=== PATIENT | female | born 1980 | race Asian ===

== ENCOUNTER 2016-08-12 09:34 | Emergency (ER) | payer BC, OTHER ==
[2016-08-12 09:40] VITALS: TEMP 97.7
[2016-08-12 10:13] VITALS: PULSE 65
[2016-08-12 10:14] LABS: COLOR PALE YELLOW; LEUKOCYTE ESTERASE,URINE NEGATIVE (NEGATIVE); NITRITE,URINE NEGATIVE (NEGATIVE)
--- NOTE | 2016-08-12 10:33 | EDPHY ---
H & P Time Seen by Provider: 08/12/16 10:04 HPI/ROS: Chief complaint. Pelvic pain HPI. 36-year-old female has had 4-5 months of low back stiffness that she feels has been muscular. The last 2 days however she has had some increasing pain to the low back. She has had some burning with urination. Fullness and warmth to the low abdomen on both sides. Symptoms are worse with yoga crunch. No chest discomfort or trouble breathing. No vomiting diarrhea or fever. She does not think she has vaginal discharge ROS Constitutional. no fever/chills, no weakness Eyes. no problems with vision ENT. no sore throat, no nasal drainage Cardiovascular. no chest pain Respiratory. no shortness of breath, no cough Abdominal. Low abdominal pain . no problems urinating MS. Low back pain Skin. no rash Lymph. no swollen glands Neuro. no headache, no dizziness, no difficulty walking or with speech Past Medical/Surgical History: Past medical history significant for lactose intolerant and post concussive syndrome Social History: Single, nonsmoker, no alcohol Smoking Status: Never smoked Physical Exam: General Appearance: Alert pleasant well-developed female mild distress vital signs are stable Eyes: Pupils equal and round no pallor or injection. ENT, Mouth: Mucous membranes are moist. Respiratory: There are no retractions, lungs are clear to auscultation. Cardiovascular: Regular rate and rhythm. Gastrointestinal: Abdomen is soft with mild bilateral adnexal tenderness. No masses. Neurological: Awake and alert, sensory and motor exams grossly normal. Skin: Warm and dry, no rashes. Musculoskeletal: Neck is supple nontender. Mild tenderness over the sacrum Extremities symmetrical, full range of motion. Psychiatric: Patient is oriented X 3, there is no agitation. Constitutional: Initial Vital Signs Temperature (C) 36.5 C 08/12/16 09:35 Heart Rate 65 08/12/16 09:35 Respiratory Rate 16 08/12/16 09:35 Blood Pressure 105/66 08/12/16 09:35 O2 Sat (%) 96 08/12/16 09:35 O2 Delivery Mode Room Air Allergies/Adverse Reactions: No Known Allergies Allergy (Verified 08/12/16 09:35) Home Medications: Medication Instructions Recorded NK [No Known Home Meds] 08/12/16 Medical Decision Making - Diagnostics Imaging: Pelvic ultrasound reviewed and discussed with Dr. Morelos shows possible involuted cyst on the right ovary but otherwise is normal Procedures: IV normal saline ED Course/Re-evaluation: Re-evaluation at 11:55 a.m.. Patient is stable. She and I discussed imaging and laboratory results. We discussed treatment plan including criteria for return and importance of follow-up and further evaluation. 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 Differential Diagnosis: I considered urinary tract infection, muscular low back pain, ovarian cyst, ectopic - Data Points Laboratory Results: Laboratory Results 08/12/16 10:52 08/12/16 10:52 08/12/16 08/12/16 10:52 10:03 WBC 5.27 10^3/uL (3.80-9.50) RBC 4.44 10^6/uL (4.18-5.33) Hgb 14.5 g/dL (12.6-16.3) Hct 41.5 % (38.0-47.0) MCV 93.5 fL (81.5-99.8) MCH 32.7 pg (27.9-34.1) MCHC 34.9 g/dL (32.4-36.7) RDW 11.4 L % (11.5-15.2) Plt Count 266 10^3/uL (150-400) MPV 10.3 fL (8.7-11.7) Neut % (Auto) 58.3 % (39.3-74.2) Lymph % (Auto) 34.0 % (15.0-45.0) [place] % (Auto) 5.1 % (4.5-13.0) Eos % (Auto) 1.5 % (0.6-7.6) Baso % (Auto) 0.9 % (0.3-1.7) Nucleat RBC Rel Count 0.0 % (0.0-0.2) Absolute Neuts (auto) 3.07 10^3/uL (1.70-6.50) Absolute Lymphs (auto) 1.79 10^3/uL (1.00-3.00) Absolute Monos (auto) 0.27 L 10^3/uL (0.30-0.80) Absolute Eos (auto) 0.08 10^3/uL (0.03-0.40) Absolute Basos (auto) 0.05 10^3/uL (0.02-0.10) Absolute Nucleated RBC 0.00 10^3/uL (0-0.01) Immature Gran % 0.2 % (0.0-1.1) Immature Gran # 0.01 10^3/uL (0.00-0.10) Sodium 142 mEq/L (134-144) Potassium 4.6 mEq/L (3.5-5.2) Chloride 105 mEq/L (97-110) Carbon Dioxide 24 mEq/l (22-31) Anion Gap 13 mEq/L (8-16) BUN 19 mg/dL (7-23) Creatinine 0.7 mg/dL (0.6-1.0) Estimated GFR > 60 Glucose 93 mg/dL (70-100) Calcium 9.8 mg/dL (8.5-10.4) Beta HCG, Qual NEGATIVE Urine Color PALE YELLOW Urine Appearance CLEAR Urine pH 7.0 (5.0-7.5) Ur Specific [place] 1.004 (1.002-1.030) Urine Protein NEGATIVE (NEGATIVE) Urine Ketones NEGATIVE (NEGATIVE) Urine Blood NEGATIVE (NEGATIVE) Urine Nitrate NEGATIVE (NEGATIVE) Urine Bilirubin NEGATIVE (NEGATIVE) Urine Urobilinogen NEGATIVE EU (0.2-1.0) Ur Leukocyte Esterase NEGATIVE (NEGATIVE) Ur Culture Indicated? NOT INDICATED (NI) Urine Glucose NEGATIVE (NEGATIVE) Medications Given: Discontinued Medications Sodium Chloride (Ns) 1,000 mls @ 0 mls/hr IV ONCE ONE PRN Reason: Wide Open Stop: 08/12/16 10:31 Last Admin: 08/12/16 10:42 Dose: Not Given Departure - Departure Disposition: Home, Routine, Self-Care Clinical Impression: Pain in pelvis Cyst of ovary Qualifiers: Laterality: right Qualifier Code: (N83.201) Unspecified ovarian cyst, right side Condition: Good Instructions: Pelvic Pain in Women (ED) Additional Instructions: Ibuprofen 400 mg every 6 hours for discomfort. Activity as tolerated. Return for worsening symptoms. I will give you the name of 1 of our gynecologists. Call tomorrow to make a follow-up appointment for further evaluation Referrals: NONE *PRIMARY CARE P,. [Primary Care Provider] - As per Instructions Arati Huffman MD [Medical Doctor] - 2-3 days, call for appt.
[2016-08-12] MEDS: NS 1,000 ML IV ONE ×2 (10:39→10:42)
[2016-08-12 11:08] LABS: % IMMATURE GRANULYOCYTES 0.2 % (0.0-1.1); ABSOLUTE IMMATURE GRANULOCYTES 0.01 10^3/uL (0.00-0.10); ADD DIFF? NO; ADD MORPH? NO; ADD SCAN? NO; ATYPICAL LYMPHOCYTE FLAG 10 (0-99); FRAGMENT RBC FLAG 0 (0-99); HEMATOCRIT 41.5 % (38.0-47.0); HEMOGLOBIN 14.5 g/dL (12.6-16.3); LEFT SHIFT FLG 0 (0-99); LIPEMIA HEMOLYSIS FLAG 90 (0-99); MEAN CELL HEMOGLOBIN 32.7 pg (27.9-34.1); MEAN CELL HEMOGLOBIN CONCENTR. 34.9 g/dL (32.4-36.7); MEAN CELL VOLUME 93.5 fL (81.5-99.8); MEAN PLATELET VOLUME 10.3 fL (8.7-11.7); PLATELET CLUMPS FLAG 0 (0-99); PLATELET COUNT 266 10^3/uL (150-400); RED BLOOD CELL COUNT 4.44 10^6/uL (4.18-5.33); RED CELL DISTRIBUTION WIDTH 11.4 % (11.5-15.2)
[2016-08-12 11:39] LABS: ANION GAP 13 mEq/L (8-16); CALCIUM 9.8 mg/dL (8.5-10.4); CARBON DIOXIDE 24 mEq/l (22-31); CHLORIDE 105 mEq/L (97-110); CREATININE 0.7 mg/dL (0.6-1.0); GLOMERULAR FILTRATION RATE > 60; GLUCOSE 93 mg/dL (70-100); POTASSIUM 4.6 mEq/L (3.5-5.2); SODIUM 142 mEq/L (134-144)
--- NOTE | 2016-08-12 12:05 | US ---
Pelvic Ultrasound (Transabdominal and Endovaginal) with color flow and spectral Doppler History: Chronic pelvic pain with recent increase in symptoms.. Comparison: Prior MRI pelvis study from January 10, 2015. Findings: The pelvis was first examined through a mildly distended bladder from TRANSABDOMINAL approach. UTERUS: Size: 7.5 x 3.7 x 5.4 cm in longitudinal, AP, and transverse projections. Orientation: Anteflexed. Uterine Masses: None seen. Endometrium: Mildly thickened measuring about 12 mm. No focal abnormality.. ADNEXA: No adnexal masses. The pelvis was then evaluated from ENDOVAGINAL approach after the bladder was emptied to better evalu ate the uterus and adnexa. UTERUS: Orientation: Anteverted. Masses: None. Endometrium: Normal measuring 11 mm in thickness. No focal abnormality. Arcuate type configuration o f the uterine fundus. ADNEXA: Normal. Small follicles are present bilaterally. Involuted small follicular cyst suspected ri ght ovary. Right ovary size: 3.7 x 2.6 x 2.1 cm Left ovary size: 2.6 x 1.1 x 2.5 cm Color flow and spectral Doppler: Normal color flow imaging with normal Doppler waveform bilaterally. Free fluid: Mild physiologic free fluid is seen in the pelvis. Other findings:None. Impression: Relatively normal pelvic ultrasound for age. These findings were discussed by telephone with Dr. Lucas Shaw at 1202 hrs.
[2016-08-12 12:19] VITALS: BP 104/53; RESP 18; O2SAT 95
== END 2016-08-12 12:19 | disposition home or self-care (01) ==
DX: N83.201 Unspecified ovarian cyst, right side (principal)

== ENCOUNTER → 2017-05-02 | Outpatient (CLI) | payer BC | LOC: FIMAGING 17:47 | PROVIDERS: ATTEND Nurse Practitioner | DX: R19.09 Other intra-abdominal and pelvic swelling, mass and lump (principal) ==

== ENCOUNTER → 2017-08-07 | Outpatient (CLI) | payer BC | LOC: FIMAGING 18:02 | PROVIDERS: ATTEND Family Medicine | DX: R07.81 Pleurodynia (principal) ==

== ENCOUNTER 2017-09-12 18:33 | Emergency (ER) | payer BC ==
[2017-09-12 18:48] VITALS: TEMP 97.5
--- NOTE | 2017-09-12 19:55 | EDPHY ---
H & P Time Seen by Provider: 09/12/17 19:15 HPI/ROS: Chief complaint. Possible UTI HPI. 37-year-old female 6 weeks with painful urination beginning this afternoon. She has had some urinary frequency the last 1-2 weeks. She has had some low back pain last 1-2 weeks. She also noted she has had chills without fever for 2 weeks. She is 1 para 0. She has slight tenderness in the right adnexal area but has a known torn rectus abdominis muscle in this area. She has no vaginal bleeding or spotting. ROS Constitutional. no fever/chills, no weakness Eyes. no problems with vision ENT. no sore throat, no nasal drainage Cardiovascular. no chest pain Respiratory. no shortness of breath, no cough Abdominal. no abdominal pain, no nausea/vomiting, no diarrhea . Urinary frequency and painful urination MS. no calf pain/swelling, no neck/back pain, no joint pain Skin. no rash Lymph. no swollen glands Neuro. no headache, no dizziness, no difficulty walking or with speech Past Medical/Surgical History: Healthy Social History: , nonsmoker, no alcohol Smoking Status: Never smoked Physical Exam: General Appearance: Alert well-developed female mild distress vital signs are stable Eyes: Pupils equal and round no pallor or injection. ENT, Mouth: Mucous membranes are moist. Respiratory: There are no retractions, lungs are clear to auscultation. Cardiovascular: Regular rate and rhythm. Gastrointestinal: Abdomen is soft with very slight tenderness in the right adnexal area. This is where she has been having problems with a torn rectus abdominus muscle. Neurological: Awake and alert, sensory and motor exams grossly normal. Skin: Warm and dry, no rashes. Musculoskeletal: Neck is supple nontender. Extremities symmetrical, full range of motion. Psychiatric: Patient is oriented X 3, there is no agitation. Constitutional: Initial Vital Signs Temperature (C) 36.4 C 09/12/17 18:43 Heart Rate 62 09/12/17 18:43 Respiratory Rate 16 09/12/17 18:43 Blood Pressure 93/51 L 09/12/17 18:43 O2 Sat (%) 97 09/12/17 18:43 O2 Delivery Mode Room Air Allergies/Adverse Reactions: No Known Allergies Allergy (Verified 08/12/16 09:35) Home Medications: Medication Instructions Recorded NK [No Known Home Meds] 08/12/16 Medical Decision Making - Diagnostics Imaging Results: Imaging Impressions Pelvic/Renal Ultrasound 09/12/17 20:05 Impression: 1. There is a single viable intrauterine gestation noted in the right fundal uterine horn with an estimated age of 6 weeks 0 days, and an estimated date of delivery of 05/06/18. Consider follow-up reevaluation with the [facility] between 11 and 13 weeks gestation to assess the nuchal translucency, given the patient's advanced maternal age. 2. Nonspecific small focus of fluid in the left uterine horn. 3. Normal appearance of the ovaries, with no adnexal mass free fluid, or torsion. Findings were discussed with MARIXA SANDOVAL MD at 21:36, on 09/12/2017. Ultrasound shows the viable IUP. It is in the right fundal uterine horn. ED Course/Re-evaluation: Urine is fairly normal looking without obvious infection. It is sent for culture and sensitivity. Re-evaluation 7:55 p.m.. Patient and I discussed laboratory evaluation. As the patient has right adnexal tenderness and has not had an ultrasound in her it is possible that the patient has ectopic . She and I discussed this and recommendation for ultrasound. She expresses understanding and agreement Re-evaluation at 9:45 p.m.. Patient is stable. Patient, her , and I discussed lab and imaging study results. We discussed treatment plan including criteria for return importance of follow-up further evaluation. She expresses understanding and agreement Differential Diagnosis: I considered UTI, torn rectus abdominus muscle as etiology for discomfort, ectopic , ovarian cyst/torsion - Data Points Laboratory Results: 09/12/17 18:50 Urine Color PALE YELLOW Urine Appearance CLEAR Urine pH 6.0 (5.0-7.5) Ur Specific [place] 1.008 (1.002-1.030) Urine Protein NEGATIVE (NEGATIVE) Urine Ketones NEGATIVE (NEGATIVE) Urine Blood NEGATIVE (NEGATIVE) Urine Nitrate NEGATIVE (NEGATIVE) Urine Bilirubin NEGATIVE (NEGATIVE) Urine Urobilinogen NEGATIVE EU EU (0.2-1.0) Ur Leukocyte Esterase TRACE H (NEGATIVE) Urine RBC 1-3 /hpf /hpf (0-3) Urine WBC 1-3 /hpf /hpf (0-3) Ur Epithelial Cells TRACE /lpf /lpf (NONE-1+) Urine Bacteria 1+ /hpf H /hpf (NONE SEEN) Urine Mucus TRACE /lpf /lpf (NONE-1+) Urine Glucose NEGATIVE (NEGATIVE) Departure - Departure Disposition: Home, Routine, Self-Care Clinical Impression: Abdominal pain affecting Abdominal pain Qualifiers: Abdominal location: right lower quadrant Qualified Code(s): R10.31 - Right lower quadrant pain Condition: Good Instructions: Acute Abdominal Pain (ED) Additional Instructions: May use Tylenol for discomfort. Heat to low abdomen. We will call you if urine culture results are positive. Follow up with OBGYN for your . Recommendation for in-depth ultrasound between 11 and 13 weeks. Referrals: Jessica Aldana MD [Primary Care Provider] - As per Instructions Jose Guadalupe-Aarti Reinoso MD [Medical Doctor] - As per Instructions
[2017-09-12 20:19] VITALS: RESP 18
[2017-09-12 22:23] VITALS: BP 107/48; PULSE 63; O2SAT 97
== END 2017-09-12 22:20 | disposition home or self-care (01) ==
DX: O26.891 Other specified pregnancy related conditions, first trimester (principal); R10.31 Right lower quadrant pain; Z3A.01 Less than 8 weeks gestation of pregnancy

== ENCOUNTER → 2018-08-28 | Outpatient (CLI) | payer BC | LOC: FIMAGING 11:35 | PROVIDERS: ATTEND Obstetrics & Gynecology | DX: O09.521 Supervision of elderly multigravida, first trimester (principal); O26.20 Pregnancy care for patient with recurrent pregnancy loss, unspecified trimester; O35.1XX1 Maternal care for (suspected) chromosomal abnormality in fetus, fetus 1; Q51.810 Arcuate uterus; Z3A.13 13 weeks gestation of pregnancy ==

== ENCOUNTER 2018-09-12 21:44 | Emergency (ER) | payer BC ==
[2018-09-12] MEDS ORDERED: NS 1,000 ML IV ONE ×2 (22:36)
--- NOTE | 2018-09-12 22:40 | EDPHY ---
H & P Stated Complaint: ABD PAIN W/ N/V ALL DAY, 15 WEEK +OB Time Seen by Provider: 09/12/18 22:16 HPI/ROS: HPI This is a is (2 SABs) at 15 weeks estimated gestational age by ultrasound who presents with 1 day of nausea, vomiting, abdominal cramping. Symptoms began this morning at about 7:00 a.m.. She ate breakfast and then vomited it. She tried to eat lunch but also vomited this. Later in the day she was unable to tolerate a cup of water and called the advice nurse from her OB GYNs office and was instructed to come into the emergency department. She describes intermittent mild diffuse cramping abdominal pain associated with this. She has had 2 episodes of loose stool. She has not had urine output. She has had an uncomplicated thus far. She has not had a fever, dysuria, hematuria, vaginal bleeding, vaginal discharge. REVIEW OF SYSTEMS 10 systems were reviewed and negative with the exception of the elements mentioned in the history of present illness. PMHx: Healthy, OBGYN is Dr. Taylor Soc Hx: PHYSICAL General Appearance: Alert, no distress Eyes: Pupils equal and round no pallor or injection ENT, Mouth: Mucous membranes moist Respiratory: There are no retractions, lungs are clear to auscultation Cardiovascular: Regular rate and rhythm Gastrointestinal: Abdomen is soft and non-tender, gravid, bowel sounds normal Neurological: A&O, moves all extremities Skin: Warm and dry, no rashes Musculoskeletal: Neck is supple non tender Extremities: symmetrical, full range of motion Psychiatric: Patient is oriented X 3, there is no agitation Source: Patient Exam Limitations: No limitations - Personal History EDC: 03/05/19 Current Tetanus Diphtheria and Acellular Pertussis (TDAP): Unsure - Medical/Surgical History Hx Asthma: No Hx Chronic Respiratory Disease: No Hx Diabetes: No Hx Cardiac Disease: No Hx Renal Disease: No Hx Cirrhosis: No Hx Alcoholism: No Hx HIV/AIDS: No Hx Splenectomy or Spleen Trauma: No Other PMH: lactose intolerant - Social History Smoking Status: Never smoked Constitutional: Initial Vital Signs Temperature (C) 36.4 C 09/12/18 21:50 Heart Rate 81 09/12/18 21:50 Respiratory Rate 14 09/12/18 21:50 Blood Pressure 104/59 L 09/12/18 21:50 O2 Sat (%) 95 09/12/18 21:50 O2 Delivery Mode Room Air Allergies/Adverse Reactions: No Known Allergies Allergy (Verified 08/12/16 09:35) Home Medications: Medication Instructions Recorded Synthroid 09/12/18 Nitrofurantoin Monohyd/M-Cryst 100 mg PO BID 5 Days capsule 09/13/18 [Macrobid 100 mg Capsule] Medical Decision Making Differential Diagnosis: This is a 38-year-old at 15 weeks estimated gestational age who presents from home with 1 day of nausea, vomiting, diarrhea, abdominal cramping. Vital signs are normal, patient is well-appearing. Abdominal exam is benign. Differential diagnosis includes viral gastroenteritis, toxin mediated enterocolitis, less likely appendicitis. Plan for IV fluids, patient declines antiemetics at this time. We will check basic labs, UA, Dopplers. Patient received 2 L of IV fluid. Sodium was low at 129 which I suspect is hypovolemic. UA demonstrates ketones, small amount of white blood cells and bacteria. Patient does not have any irritative voiding symptoms. However given that she has bacteria in I will treat this with Macrobid. She was able to tolerate p.o. Fluids without difficulty. She will be sent home with a Zofran pill pack. - Data Points Laboratory Results: Laboratory Results 09/12/18 22:20 09/12/18 22:20 09/12/18 09/12/18 09/12/18 23:42 22:20 22:20 WBC 6.84 10^3/uL 10^3/uL (3.80-9.50) RBC 4.22 10^6/uL 10^6/uL (4.18-5.33) Hgb 13.6 g/dL g/dL (12.6-16.3) Hct 39.5 % % (38.0-47.0) MCV 93.6 fL fL (81.5-99.8) MCH 32.2 pg pg (27.9-34.1) MCHC 34.4 g/dL g/dL (32.4-36.7) RDW 11.7 % % (11.5-15.2) Plt Count 230 10^3/uL 10^3/uL (150-400) MPV 10.2 fL fL (8.7-11.7) Neut % (Auto) 91.6 % H % (39.3-74.2) Lymph % (Auto) 4.7 % L % (15.0-45.0) [place] % (Auto) 3.2 % L % (4.5-13.0) Eos % (Auto) 0.1 % L % (0.6-7.6) Baso % (Auto) 0.1 % L % (0.3-1.7) Nucleat RBC Rel Count 0.0 % % (0.0-0.2) Absolute Neuts (auto) 6.26 10^3/uL 10^3/uL (1.70-6.50) Absolute Lymphs (auto) 0.32 10^3/uL L 10^3/uL (1.00-3.00) Absolute Monos (auto) 0.22 10^3/uL L 10^3/uL (0.30-0.80) Absolute Eos (auto) 0.01 10^3/uL L 10^3/uL (0.03-0.40) Absolute Basos (auto) 0.01 10^3/uL L 10^3/uL (0.02-0.10) Absolute Nucleated RBC 0.00 10^3/uL 10^3/uL (0-0.01) Immature Gran % 0.3 % % (0.0-1.1) Seg Neutrophils % 0.0 % % Band Neutrophils % 0.0 % % Lymphocytes % 0.0 % % Monocytes % 0.0 % % Eosinophils % 0.0 % % Basophils % 0.0 % % Metamyelocytes % 0.0 % % Myelocytes % 0.0 % % Promyelocytes % 0.0 % % Blast Cells % 0.0 % % Immature Gran # 0.02 10^3/uL 10^3/uL (0.00-0.10) Absolute Seg Neuts 0.00 10^3/uL L 10^3/uL (1.70-6.50) Absolute Band Neuts 0.00 10^3/uL 10^3/uL (0.00-0.70) Absolute Lymphocytes 0.00 10^3/uL L 10^3/uL (1.00-3.00) Absolute Monocytes 0.00 10^3/uL L 10^3/uL (0.30-0.80) Absolute Eosinophils 0.00 10^3/uL L 10^3/uL (0.03-0.40) Absolute Basophils 0.00 10^3/uL L 10^3/uL (0.02-0.10) Absolute Metamyelocyte 0.00 10^3/mL 10^3/mL (0.00-0.00) Absolute Myelocytes 0.00 10^3/mL 10^3/mL (0.00-0.00) Absolute Promyelocytes 0.00 10^3/uL 10^3/uL (0.00-0.00) Absolute Plasma Cells 0.00 10^3/uL 10^3/uL (0.00-0.00) Absolute Blast Cells 0.00 10^3/uL 10^3/uL (0.00-0.00) Plasma Cells % 0.0 % % Platelet Estimate TNP Sodium 129 mEq/L L mEq/L (135-145) Potassium 3.4 mEq/L L mEq/L (3.5-5.2) Chloride 101 mEq/L mEq/L (97-110) Carbon Dioxide 22 mEq/l mEq/l (22-31) Anion Gap 6 mEq/L mEq/L (6-14) BUN 11 mg/dL mg/dL (7-23) Creatinine 0.5 mg/dL L mg/dL (0.6-1.0) Estimated GFR > 60 Glucose 96 mg/dL mg/dL (70-100) Calcium 8.7 mg/dL mg/dL (8.5-10.4) Total Bilirubin 0.5 mg/dL mg/dL (0.1-1.4) AST 25 IU/L IU/L (14-46) ALT 27 IU/L IU/L (9-52) Alkaline Phosphatase 43 IU/L IU/L (38-126) Total Protein 7.4 g/dL g/dL (6.3-8.2) Albumin 4.3 g/dL g/dL (3.5-5.0) Urine Color YELLOW Urine Appearance CLEAR Urine pH 5.0 (5.0-7.5) Ur Specific [place] 1.015 (1.002-1.030) Urine Protein NEGATIVE (NEGATIVE) Urine Ketones 2+ H (NEGATIVE) Urine Blood NEGATIVE (NEGATIVE) Urine Nitrate NEGATIVE (NEGATIVE) Urine Bilirubin NEGATIVE (NEGATIVE) Urine Urobilinogen NEGATIVE EU EU (0.2-1.0) Ur Leukocyte Esterase 1+ H (NEGATIVE) Urine RBC 1-3 /hpf /hpf (0-3) Urine WBC 5-10 /hpf H /hpf (0-3) Ur Epithelial Cells TRACE /lpf /lpf (NONE-1+) Urine Bacteria 2+ /hpf H /hpf (NONE SEEN) Urine Mucus TRACE /lpf /lpf (NONE-1+) Urine Glucose NEGATIVE (NEGATIVE) Medications Given: Discontinued Medications Sodium Chloride (Ns) 1,000 mls @ 0 mls/hr IV EDNOW ONE; Wide Open PRN Reason: Protocol Stop: 09/12/18 22:37 Last Admin: 09/12/18 22:41 Dose: 1,000 mls Sodium Chloride (Ns) 1,000 mls @ 0 mls/hr IV EDNOW ONE; Wide Open PRN Reason: Protocol Stop: 09/12/18 22:37 Last Admin: 09/12/18 22:42 Dose: 1,000 mls Departure - Departure Disposition: Home, Routine, Self-Care Clinical Impression: Nausea/vomiting in , Asymptomatic bacteriuria during Condition: Good Instructions: Nausea and Vomiting in (ED) Additional Instructions: Please make sure to drink clear liquids until your feeling better. You should return to the emergency room if your unable to keep any fluids or food down for more than 8 hr. Referrals: Jessica Aldana MD [Primary Care Provider] - As per Instructions Peace Taylor MD [Medical Doctor] - As per Instructions Prescriptions: Nitrofurantoin Monohyd/M-Cryst [Macrobid 100 mg Capsule] 100 mg PO BID 5 Days capsule
[2018-09-12 22:45] LABS: PLATELET COUNT 230 10^3/uL (150-400)
[2018-09-13] MEDS ORDERED: ONDANSETRON 4MG PREPACK#2 BTL TAKEHOME ONE (00:45)
[2018-09-13] MEDS ORDERED: NITROFURANTOIN 100MG PREPACK#2 BTL TAKEHOME ONE (00:45)
[2018-09-13 00:58] VITALS: BP 105/69
== END 2018-09-13 00:58 | disposition home or self-care (01) ==
DX: O21.9 Vomiting of pregnancy, unspecified (principal); O99.89 Other specified diseases and conditions complicating pregnancy, childbirth and the puerperium; O23.92 Unspecified genitourinary tract infection in pregnancy, second trimester; O99.282 Endocrine, nutritional and metabolic diseases complicating pregnancy, second trimester; E86.9 Volume depletion, unspecified; Z3A.15 15 weeks gestation of pregnancy

== ENCOUNTER → 2018-10-13 | Outpatient (CLI) | payer BC | LOC: FIMAGING 07:37 | PROVIDERS: ATTEND Obstetrics & Gynecology | DX: O09.522 Supervision of elderly multigravida, second trimester (principal); Z3A.19 19 weeks gestation of pregnancy ==